=== PATIENT | female | born 1940 ===

== ENCOUNTER 2017-04-24 19:02 | Observation (INO) | payer MEDICARE, BC ==
[2017-04-24 19:13] VITALS: TEMP 99.2; O2SAT 98
[2017-04-24] MEDS ORDERED: Sodium Chloride 0.9% 1,000 ML IV STA (19:33)
[2017-04-24] MEDS ORDERED: Iohexol 240 (50 ml) PO ONE (19:49)
[2017-04-24] MEDS ORDERED: Iohexol 240 (50 ml) ONE (20:12)
--- NOTE | 2017-04-24 20:25 | ED PDOC ---
HPI: Abdomen Time Seen by Provider: 04/24/17 19:23 Chief Complaint (Nursing): GI Problem Chief Complaint (Provider): vomiting, diarrhea, and abdominal pain History Per: Patient History/Exam Limitations: no limitations Onset/Duration Of Symptoms: Days (x 1) Current Symptoms Are (Timing): Still Present Associated Symptoms: Urinary Symptoms Additional Complaint(s): Maci is a 76 y/o female with a past medical history of diabetes, hypertension, bladder prolapse, and osteoporosis, who presents to the ED complaining of vomiting and diarrhea for 1 day. Patient also with dysuria since yesterday evening. States she saw Dr. 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 Patient was given AZO to take for possible UTI. After taking medication, she vomited 10 times (non-bloody, non- bilious) and also had 10 episodes of diarrhea (non-bloody, watery). No cough, chest pain, or shortness of breath. PMD: Ariane Marie TAIL PULLER: Sam Kathleen Past Medical History Reviewed: Historical Data, Nursing Documentation, Vital Signs Vital Signs: Last Vital Signs Temp 99.2 F 04/24/17 19:09 Pulse 78 04/24/17 19:09 Resp 18 04/24/17 19:09 BP 168/63 H 04/24/17 19:09 Pulse Ox 98 04/24/17 20:48 - Medical History PMH: Asthma (worst in winter), Diabetes, HTN, Osteoporosis Other PMH: bladder prolapse - Surgical History Surgical History: Appendectomy, Cholecystectomy Other surgeries: Hysterectomy - Family History Family History: States: Unknown Family Hx - Social History Current smoker - smoking cessation education provided: No Alcohol: None Drugs: Denies - Home Medications Home Medications: Ambulatory Orders Medication Instructions Recorded Acetaminophen/Codeine 1 tab PO Q6H PRN #10 tab 11/23/15 [Tylenol/Codeine 300 MG/30 MG] Diclofenac Sodium [Voltaren] 100 gm TP TID #60 gel..gram. 11/23/15 Dicyclomine [Bentyl] 20 mg PO Q12 PRN #20 tab 04/25/17 Nitrofurantoin Macrocrystals 100 mg PO BID #14 cap 04/25/17 [Macrobid] Ondansetron ODT [Zofran ODT] 4 mg PO Q6 PRN #16 odt 04/25/17 - Allergies Allergies/Adverse Reactions: Allergies Allergy/AdvReac Type Severity Reaction Status Date / Time aspirin Allergy SWELLING Verified 04/24/17 19:09 Review of Systems ROS Statement: Except As Marked, All Systems Reviewed And Found Negative Cardiovascular: Negative for: Chest Pain Respiratory: Negative for: Cough, Shortness of Breath Gastrointestinal: Positive for: Vomiting, Abdominal Pain, Diarrhea Genitourinary Female: Positive for: Dysuria Physical Exam - Reviewed Nursing Documentation Reviewed: Yes Vital Signs Reviewed: Yes - Physical Exam Appears: Positive for: Non-toxic, No Acute Distress Head Exam: Positive for: ATRAUMATIC, NORMOCEPHALIC Skin: Positive for: Normal Color, Warm, Dry Eye Exam: Positive for: EOMI, Normal appearance, PERRL ENT: Positive for: Other (Dry mucous membranes) Neck: Positive for: Normal, Painless ROM, Supple Cardiovascular/Chest: Positive for: Regular Rate, Rhythm. Negative for: Murmur Respiratory: Positive for: Normal Breath Sounds. Negative for: Accessory Muscle Use, Respiratory Distress Gastrointestinal/Abdominal: Positive for: Soft, Tenderness (LLQ tenderness) Back: Positive for: Normal Inspection. Negative for: L CVA Tenderness, R CVA Tenderness, Vertebral Tenderness Extremity: Positive for: Normal ROM. Negative for: Pedal Edema, Deformity Neurologic/Psych: Positive for: Alert, Oriented. Negative for: Motor/Sensory Deficits - Laboratory Results Result Diagrams: 04/24/17 20:40 04/24/17 20:40 - ECG O2 Sat by Pulse Oximetry: 98 (RA) Pulse Ox Interpretation: Normal Medical Decision Making Medical Decision Making: Time: 19:32 Impression: 76 y/o female with vomiting/diarrheal illness and LLQ tenderness Initial Plan: --EKG --CMP --Lipase --CBC w/ differential --Urine dipstick --NS IV 1000 ml @ 1000 mls/hr --Iohexol 50 ml PO --Zofran 4 mg IV --Bentyl 20 mg PO --Pending CT Abd/Pelvis PO & IV contrast Scribe Attestation: Documented by Minerva Hayes, acting as a scribe for Gordon Mesa MD Provider Scribe Attestation: All medical record entries made by the Scribe were at my direction and personally dictated by me. I have reviewed the chart and agree that the record accurately reflects my personal performance of the history, physical exam, medical decision making, and the department course for this patient. I have also personally directed, reviewed, and agree with the discharge instructions and disposition. 19:50 CT Abdomen/Pelvis FINDINGS: Lower thorax: The bilateral lung bases are clear. ABDOMEN: Liver: No acute findings. Gallbladder and bile ducts: The gallbladder is surgically absent. No significant intra- or extrahepatic biliary ductal dilation. Pancreas: Enhances homogeneously. No ductal dilation. No discrete mass. Spleen: No acute findings. Adrenals: No acute findings. Kidneys and ureters: No acute findings. No hydronephrosis or renal calculi. No discrete solid mass. Parapelvic renal cysts, unchanged from prior. PELVIS: Bladder: No acute findings. Reproductive: The uterus is surgically absent. Within the lower uterine segment, is a rounded focus of increased attenuation, findings consistent with a pessary (a uterine ring with support). Appendix: Surgically absent. ABDOMEN and PELVIS: Stomach and bowel: No obstruction. Mural thickening is identified within multiple loops of small bowel, specifically within the left mid to upper quadrant, without surrounding inflammation or fluid to confirm an acute enteritis. Peritoneum: As above. Lymph nodes: No pathologically enlarged lymph nodes. Vasculature: Calcified atherosclerotic disease. Bones: No acute fracture. IMPRESSION: Mural thickening within multiple loops of small bowel, without surrounding inflammation or fluid to confirm an acute enteritis. 23:50 Patient reports marked improvement in symptoms. Given benign CT findings, patient is stable for discharge Clinical Impression: UTI, Gastroenteritis Upon provider evaluation patient is medically stable, and requires no further treatment in the ED at this time. Patient will be discharged with Rx for Bentyl 20mg, Macrocrystals 100mg, Zofran ODT 4mg. Counseling was provided and all questions were answered regarding diagnosis. There is agreement to discharge plan. Return if symptoms persist or worsen. Scribe Attestation: Documented by Delmy Young, acting as a scribe for Gordon Mesa MD Provider Scribe Attestation: All medical record entries made by the Scribe were at my direction and personally dictated by me. I have reviewed the chart and agree that the record accurately reflects my personal performance of the history, physical exam, medical decision making, and the department course for this patient. I have also personally directed, reviewed, and agree with the discharge instructions and disposition. Disposition - Clinical Impression Clinical Impression: Gastroenteritis, UTI (urinary tract infection) - Disposition Disposition: Routine/Home Disposition Time: 23:50 Condition: IMPROVED
[2017-04-24 20:46] LABS: BASO # 0.1 K/uL (0.0-0.2); BASO % 0.4 % (0.0-2.0); EOS % 0.1 % (0.0-4.0); HEMATOCRIT 46.4 % (34.0-47.0); LYMPH # 0.5 K/uL (1.0-4.3); MEAN CELL VOLUME 89.8 fl (81.0-99.0); MEAN CORPUSCULAR HEMOGLOBIN 29.6 pg (27.0-31.0); MEAN PLATELET VOLUME 9.3 fl (7.2-11.7); MONO # 0.4 K/uL (0.0-0.8); MONO % 3.1 % (0.0-10.0); NEUT # 11.1 K/uL (1.8-7.0); NEUT % 92.4 % (50.0-75.0); NRBC % 0.1 % (0.0-0.0); PLATELET COUNT 218 K/uL (130-400); RED CELL DISTRIBUTION WIDTH 13.7 % (11.5-14.5)
[2017-04-24 21:13] LABS: ALB/GLOB RATIO 1.4 (1.0-2.1); ALKALINE PHOSPHATASE 71 U/L (38-126); ALT/SGPT 41 U/L (9-52); AST/SGOT 39 U/L (14-36); BILIRUBIN,TOTAL 0.5 mg/dl (0.2-1.3); BLOOD UREA NITROGEN 22 mg/dl (7-17); CALCIUM 9.3 mg/dL (8.4-10.2); CARBON DIOXIDE 27 mmol/L (22-30); CHLORIDE 99 mmol/L (98-107); GFR AFRICAN-AMERICAN > 60; GLUCOSE,RANDOM 149 mg/dL (65-105); LIPASE 341 U/L (23-300); POTASSIUM 3.9 MMOL/L (3.6-5.0); SODIUM 142 mmol/l (132-148); TOTAL PROTEIN 7.6 G/DL (6.3-8.2)
[2017-04-24 22:22] LABS: NEUTROPHIL 89 % (42-75); TOTAL CELLS COUNTED 100
[2017-04-24] MEDS ORDERED: Sodium Chloride 0.9% 50 ML IV ONE (22:59)
[2017-04-24] MEDS ORDERED: Iohexol 300 100 ML IJ ONE (22:59)
--- NOTE | 2017-04-25 00:19 | CT ---
EXAM: CT Abdomen and Pelvis With Intravenous Contrast CLINICAL HISTORY: 76 years old, female; Pain; Abdominal pain; Localized; Left lower quadrant (llq); Prior surgery; Surgery date: 6+ months; Surgery type: Hysterectomy. Appendectomy. Cholecystectomy; Additional info: Abd pain llq TECHNIQUE: Axial computed tomography images of the abdomen and pelvis with intravenous contrast. All CT scans at this facility use one or more dose reduction techniques, viz.: automated exposure control; ma/kV adjustment per patient size (including targeted exams where dose is matched to indication; i.e. head); or iterative reconstruction technique. Coronal and sagittal reformatted images were created and reviewed. CONTRAST: 90 mL of [id number] administered intravenously. COMPARISON: CT ABD 07/21/2012 7:01:04 PM FINDINGS: Lower thorax: The bilateral lung bases are clear. ABDOMEN: Liver: No acute findings. Gallbladder and bile ducts: The gallbladder is surgically absent. No significant intra- or extrahepatic biliary ductal dilation. Pancreas: Enhances homogeneously. No ductal dilation. No discrete mass. Spleen: No acute findings. Adrenals: No acute findings. Kidneys and ureters: No acute findings. No hydronephrosis or renal calculi. No discrete solid mass. Parapelvic renal cysts, unchanged from prior. PELVIS: Bladder: No acute findings. Reproductive: The uterus is surgically absent. Within the lower uterine segment, is a rounded focus of increased attenuation, findings consistent with a pessary (a uterine ring with support). Appendix: Surgically absent. ABDOMEN and PELVIS: Stomach and bowel: No obstruction. Mural thickening is identified within multiple loops of small bowel, specifically within the left mid to upper quadrant, without surrounding inflammation or fluid to confirm an acute enteritis. Peritoneum: As above. Lymph nodes: No pathologically enlarged lymph nodes. Vasculature: Calcified atherosclerotic disease. Bones: No acute fracture. IMPRESSION: Mural thickening within multiple loops of small bowel, without surrounding inflammation or fluid to confirm an acute enteritis.
[2017-04-25] MEDS ORDERED: cefTRIAXone (Rocephin) 1 gm Inj ONE (00:21)
[2017-04-25 02:04] VITALS: BP 128/47; PULSE 77; RESP 17
--- NOTE | 2017-04-26 10:23 | CARD ---
APPROVED REPORT EKG Measurement Heart [id number] <Conclusion> Normal sinus rhythm Minimal voltage criteria for LVH, may be normal variant Borderline ECG
== END 2017-04-25 00:26 | disposition home or self-care (01) ==
LOC: H.ER 19:02 → H.EROBSV 20:27
PROVIDERS: ADMIT Emergency Medicine; ATTEND Emergency Medicine
DX: K52.9 Noninfective gastroenteritis and colitis, unspecified (principal); N39.0 Urinary tract infection, site not specified; E11.9 Type 2 diabetes mellitus without complications; I10 Essential (primary) hypertension; M81.0 Age-related osteoporosis without current pathological fracture; J45.909 Unspecified asthma, uncomplicated; Z88.6 Allergy status to analgesic agent
CPT/HCPCS: 36415; 74177; 80053; 83690; 85025; 87040; 87086; 93005; 96360; 99282; G0378; J0696; J1885; J2405; J7040; Q9966; Q9967